=== PATIENT | male | born 1990 ===

== ENCOUNTER 2018-12-22 09:46 | Emergency (ER) | payer SELFPAY ==
[2018-12-22 09:57] VITALS: BP 125/78
[2018-12-22] MEDS ORDERED: TORADOL IM ONE (11:34)
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
== END 2018-12-22 13:17 | disposition home or self-care (01) ==
LOC: ED 09:46
DX: M54.16 Radiculopathy, lumbar region (principal); F17.200 Nicotine dependence, unspecified, uncomplicated
CPT/HCPCS: 96372; 99282; J1885